=== PATIENT | female | born 1945 | race Caucasian/White ===

== ENCOUNTER → 2016-11-03 | Day surgery (SDC) | payer MEDICARE, OTHER ==
[~2016-11-03] VITALS: Ht 154.9 cm; Wt 57.4 kg
[2016-11-03 07:06] LABS: HCT 39.7 % (37.0-47.0); HGB 13.4 g/dl (12.5-16.0); MCH 29.7 pg (25.0-31.0); MCHC 33.8 g/dL (32.0-36.0); MPV 9.5 fL (6.0-9.5); RBC 4.51 M/uL (4.20-5.40); RDW 13.1 % (11.5-14.0); WBC 5.6 K/uL (4.0-10.5)
== END | disposition home or self-care (01) ==
LOC: FAS 07:04
PROVIDERS: Surgery
DX: K58.9 Irritable bowel syndrome, unspecified (principal); M19.90 Unspecified osteoarthritis, unspecified site; I10 Essential (primary) hypertension; F32.9 Major depressive disorder, single episode, unspecified; Z85.3 Personal history of malignant neoplasm of breast; Z90.49 Acquired absence of other specified parts of digestive tract; Z79.899 Other long term (current) drug therapy; Z98.890 Other specified postprocedural states
CPT/HCPCS: 36415; 76705; 84443; 88305; J2704